=== PATIENT | female | born 1955 | race Caucasian/White ===

== ENCOUNTER 2017-09-06 06:24 | Inpatient (IN) | payer MEDICARE, OTHER ==
[2017-09-06] VITALS (16 sets, daily range): BP systolic 100–126; BP diastolic 55–89; BMI 39.2
[2017-09-06 06:35] LABS: BASOPHILS 0.2 % (0-2); EOSINOPHILS 0.1 % (0-7); HEMATOCRIT 25.1 % (36.0-48.0); HEMOGLOBIN 8.2 g/dL (12-16); IMMATURE GRANULOCYTES 0.6 % (0-5); LYMPHOCYTES 7.3 % (15-50); MCH 30.6 pg (26.0-34.0); MCHC 32.7 g/dL (31.0-37.0); MCV 93.7 fL (80.0-100.0); MEAN PLATELET VOLUME 10.7 fL (7.4-10.4); MONOCYTES 0.8 % (2-11); PLATELET COUNT 214 10x3/uL (130-400); RBC 2.68 10x6/uL (4.00-5.40); RDW 16.1 % (11.5-14.5); WBC 14.5 10x3/uL (4.8-10.8)
[2017-09-06 07:07] LABS: APTT 35.7 SECONDS (22.8-39.4); INR 1.96 (0.85-1.17); PROTIME 22.3 SECONDS (11.6-15.0)
[2017-09-06] MEDS ORDERED: ZOCOR20 MG PO (10:30)
--- NOTE | 2017-09-06 10:30 | NUR ---
PT ARRIVED FROM ER VIA STRETCHER. AWAKE, ALERT AND ORIENTED. SHE WAS ADMITTED DUE TO GI BLEED. REPORTS NO PAIN AT THIS TIME. BP 103/68 MAP 78 RI 78, O2 SAT 95% ON ROOM AIR. R-HAND 22 GAUGE SALINE LOC. RIGHT FEMORAL CVL. DRESSING HAS BLOOD ON IT. CVL SALINE LOC. ASSISTED PT ONTO BEDPAN. SMALL BM NOTED WITH DARK MELENA NOTED. WILL CONTINUE TO MONITOR.
[2017-09-06] MEDS ORDERED: COUMADIN2 MG PO (10:31)
[2017-09-06] MEDS ORDERED: NEURONTIN 300300 MG PO (10:32)
[2017-09-06] MEDS ORDERED: SYNTHROID112 MCG PO (10:33)
[2017-09-06] MEDS ORDERED: METOPROLOL TART25 MG PO (10:34)
[2017-09-06] MEDS ORDERED: BAYER CHEWABLE81 MG PO (10:34)
[2017-09-06] MEDS ORDERED: CO Q-1050 MG PO (10:35)
[2017-09-06] MEDS ORDERED: CALCIUM 600+D T1 TA1 PO (10:36)
[2017-09-06] MEDS ORDERED: VITAMIN B COMPL1 TAB PO (10:37)
[2017-09-06] MEDS ORDERED: MULTIPLE VITAMI1 TA1 PO (10:37)
[2017-09-06] MEDS ORDERED: GLUCOSAMINE HC500 MG PO (10:39)
[2017-09-06] MEDS ORDERED: MAGNESIUM OXID500 MG PO (10:40)
[2017-09-06] MEDS ORDERED: FISH OIL 1,0001 CA1 PO (10:42)
[2017-09-06] MEDS ORDERED: VITAMIN D31000 UNI2 PO (10:43)
[2017-09-06] MEDS ORDERED: ASCORBIC ACID500 MG PO (10:43)
[2017-09-06] MEDS ORDERED: VITAMIN E400 UNI2 PO (10:45)
[2017-09-06] MEDS ORDERED: PROBIOTIC250 MG PO (10:46)
[2017-09-06] MEDS ORDERED: FERROUS SULFAT325 MG PO (10:47)
[2017-09-06] MEDS ORDERED: PROTONIX20 MG PO (10:48)
[2017-09-06 10:52] LABS: ALBUMIN 2.9 g/dL (3.4-5.0); ANION GAP 13.6 mmol/L (8-16); BILIRUBIN - TOTAL 0.21 mg/dL (0.2-1.3); CALCIUM 7.4 mg/dL (8.5-10.1); CARBON DIOXIDE 22.8 mmol/L (21.0-32.0); CREATININE - SERUM 0.9 mg/dL (0.6-1.3); POTASSIUM - SERUM 4.4 mmol/L (3.5-5.1); PROTEIN - SERUM 5.4 g/dL (6.4-8.2)
[2017-09-06 11:37] LABS: BASOPHILS 0.1 % (0-2); EOSINOPHILS 0 % (0-7); HEMATOCRIT 24.7 % (36.0-48.0); HEMOGLOBIN 8.2 g/dL (12-16); IMMATURE GRANULOCYTES 0.5 % (0-5); MCH 30.8 pg (26.0-34.0); MCHC 33.2 g/dL (31.0-37.0); MCV 92.9 fL (80.0-100.0); MEAN PLATELET VOLUME 10.6 fL (7.4-10.4); MONOCYTES 0.7 % (2-11); NEUTROPHILS 92.7 % (40-80); PLATELET COUNT 201 10x3/uL (130-400); RBC 2.66 10x6/uL (4.00-5.40); RDW 16.5 % (11.5-14.5); WBC 14.8 10x3/uL (4.8-10.8)
--- NOTE | 2017-09-06 14:58 | NUR ---
2 UNIT OF PRBC'S INFUSING AT THIS TIME. ORAL TEMP 98.2, BP 107/54, ND 59, RR 18, O2 SAT OF 98% ON ROOM AIR. NO OTHER NEEDS AT THIS TIME.
--- NOTE | 2017-09-06 15:40 | NUR ---
SWALLOW EVAL IN PROGRESS AT THIS TIME.
--- NOTE | 2017-09-06 16:12 | HP ---
PATIENT: CARL WEBB MEDICAL RECORD: [id number] ACCOUNT: [id number] LOCATION:[facility] D.2312 : 55 ADMISSION DATE: 09/06/17 HISTORY AND PHYSICAL EXAMINATION HISTORY OF PRESENT ILLNESS: This 62-year-old white female was transferred from the [facility] to [place] ICU for evidence of GI bleed. The patient has had multiple episodes of GI bleed in the past, the last one was approximately 4 months ago. She states that she has had at least 5 episodes including this one of GI bleed secondary to her Coumadin. She describes having bright red blood from her rectum earlier today. She was flown in by helicopter, transfusion was occurring en route. Patient is on the Coumadin secondary to an ischemic CVA that she sustained as well as history of an arrhythmia with atrial fibrillation. The patient has difficulty with expression of her thought process with some mild expressive aphasia. She is able to be prompted okay on words, but difficult to obtain history. PAST MEDICAL HISTORY: Significant for ischemic CVA, weakness on her right side, obesity, neuropathy, vision changes. She also has a history of arrhythmia, atrial fib. She also had a defibrillator placed. The patient has a history of multiple GI bleeds. She also had a gastric bypass. Hypothyroidism. PAST SURGICAL HISTORY: Includes gastric bypass, defibrillator placement, and hysterectomy. ALLERGIES: She to allergic to IODINE MEDIA, TETRACYCLINE, SHELLFISH. HABITS: The patient does not smoke, does not drink alcohol. MEDICATIONS: Include Zocor, Coumadin, Neurontin, Levothroid, metoprolol, aspirin, Co-Q-10, calcium, multivitamin, B complex, glucosamine, magnesium, fish oil, vitamin D, vitamin C, iron, and Protonix. SOCIAL HISTORY: The patient does not smoke, does not drink alcohol. FAMILY HISTORY: Does have a family history of diabetes. REVIEW OF SYSTEMS: Difficult to obtain. PHYSICAL EXAMINATION: VITAL SIGNS: As below. GENERAL: She is a well-developed, well-nourished, obese 62-year-old white female in no acute distress. Pale conjunctivae is noted. HEENT: Normocephalic, atraumatic. Pupils equal, round and reactive to light. Extraocular movements are intact. Oral cavity and oropharynx otherwise clear. NECK: No cervical or pharyngeal adenopathy. No nuchal rigidity. LUNGS: Clear to auscultation bilaterally. HEART: Regular rate and rhythm with a II/ systolic ejection murmur. ABDOMEN: Morbidly obese, soft, nontender, positive bowel sounds. No hepatosplenomegaly, no masses. EXTREMITIES: Trace edema is noted. NEUROLOGIC: She is able to have expressive aphasia, but is able to verbalize most things. LABORATORY DATA: Her white count is 14,000, H&H 8 and 24, platelets of 201. HISTORY AND PHYSICAL [id number] CARL WEBB INR is 1.9, glucose is elevated at 252, albumin is low at 2.9. ASSESSMENT: The patient is guaiac positive. She will be transfused 2 units packed red blood cells now. GI consultation will be obtained, sliding scale of insulin. We will check laboratory appropriately. TRANSINT:[id number] Voice Confirmation ID: [id number] DOCUMENT ID: [id number] FERNANDO CUTLER MD at 1612 CC: [id number] DICTATION DATE: 09/06/17 121 VP SECURITIES: 09/06/17 1227 ADM IN [facility] [address] [place] [address]
--- NOTE | 2017-09-06 16:18 | NUR ---
VOIDED ABOUT 400ML. PULLED UP IN BED. ENCOURAGED PT TO CHANGE POSITION IN BED FREQUENTLY TO PREVENT PRESSURE ULCERS. WILL CONTINUE TO MONITOR.
--- NOTE | 2017-09-06 18:34 | NUR ---
PT SCHEDULED FOR COLONOSCOPY WITH TIVA TOMORROW. GO LIGHTLY INITIATED. CONSENT FORMS SIGNED AND PLACED IN CHART. PT DENIES OTHER NEEDS AT THIS TIME.
--- NOTE | 2017-09-06 19:05 | NUR ---
ASSISTED PT TO BEDSIDE COMODE. LARGE BM WITH BLOOD NOTED. BM MIXED WITH URINE. PT TOLERATED WELL GETTING OUT OF BED AND ONTO BEDSIDE COMODE. ATE ALL HER DINNER. NO OTHER NEEDS AT THIS TIME.
--- NOTE | 2017-09-06 19:20 | NUR ---
SHIFT ASSESSMENT COMPLETE. A&O X4 WITH NO COMPLAINTS OF DISCOMFORT AT THIS TIME. SHE IS ABLE TO AMBULATE BY HERSELF, BUT I INSTRUCTED HER TO PUSH HER CALL LIGHT WHEN SHE NEEDS TO USE THE BSC FOR ASSISTANCE. SHE STATES THAT SHE UNDERSTANDS. S1S2 AUDIBLE. PACEMAKER TO L CHEST. LUNG SOUNDS ARE CLEAR AND HER BREATHS ARE EVEN AND UNLABORED. ABD IS ROUND AND SOFT. SHE STATES THAT IT IS NON TENDER TO TOUCH. BS ACTIVE X4. ASSISTED PT TO BSC. LARGE AMOUNT OF BLOODY STOOL EXPELLED. STOOL SAMPLE COLLECTED AND SENT TO LAB. R FEMORAL CVL INTACT. DRESSING IS BLOODY, BUT IS NOT CURRENTLY LEAKING ANY BLOOD. RADIAL AND PEDAL PULSES PALP. CALL LIGHT IN REACH. BED IN LOWEST POSITION. WILL CONT TO MONITOR.
--- NOTE | 2017-09-06 21:00 | NUR ---
COMPLETE LINEN CHANGE. PT HAS HAD 4 BOWEL MOVEMENTS. EACH ONE CONSISTS OF A LARGE AMOUNT OF BLOOD. GOLYTELY PREP IS 1/2 GONE AT THIS POINT. NO FURTHER NEEDS AT THIS TIME. LR INFUSING THROUGH CVL @ 125 ML/HR. WILL CONT TO MONITOR.
[2017-09-06 22:10] LABS: HEMATOCRIT 28.6 % (36.0-48.0); HEMOGLOBIN 9.7 g/dL (12-16)
--- NOTE | 2017-09-06 23:30 | NUR ---
PT RESTING PEACEFULLY IN BED AT THIS TIME WITH NO SIGNS OF ACUTE DISTRESS NOTED. BM X5. SHE STATES THAT SHE REFUSES THE LAST CUP OF THE GOLYTLEY. EDUCATED HER ON THE BENEFITS OF FINISHING THE SOLUTION, BUT SHE STILL REFUSED. NPO STARTING NOW. RT GROIN CVL DRESSING IS BLOODY BUT IS NOT ACTIVELY BLEEDING AT THIS TIME. REASSESSMENT COMPLETE. NO CHANGES NOTED. WILL CONT TO MONITOR.
[2017-09-07] VITALS (24 sets, daily range): BP systolic 84–130; BP diastolic 46–87; BMI 40.3
--- NOTE | 2017-09-07 01:30 | NUR ---
PT RESTING PEACEFULLY AT THIS TIME WITH NO SIGNS OF ACUTE DISTRESS NOTED. BED IN LOWEST POSITION. CALL LIGHT IN REACH. WILL CONT TO MONITOR.
--- NOTE | 2017-09-07 03:30 | NUR ---
REASSESSMENT COMPLETE. NO CHANGES NOTED AT THIS TIME. PT'S RT GROIN CVL DRESSING IS INTACT WITH BLOODY GAUZE UNDERNEATH TEGADERM. LR INFUSING @ 125 CC/HR. SHE DENIES ANY PAIN AT THIS TIME. NO FURTHER REQUESTS. WILL CONT WITH POC.
[2017-09-07 04:35] LABS: BASOPHILS 0.1 % (0-2); EOSINOPHILS 0.1 % (0-7); HEMATOCRIT 23.5 % (36.0-48.0); IMMATURE GRANULOCYTES 0.3 % (0-5); LYMPHOCYTES 12.8 % (15-50); MCH 29.4 pg (26.0-34.0); MCHC 32.8 g/dL (31.0-37.0); MEAN PLATELET VOLUME 10.8 fL (7.4-10.4); MONOCYTES 7.2 % (2-11); NEUTROPHILS 79.5 % (40-80); RBC 2.62 10x6/uL (4.00-5.40); RDW 17.5 % (11.5-14.5); WBC 14.7 10x3/uL (4.8-10.8)
[2017-09-07 04:37] LABS: APTT 25.6 SECONDS (22.8-39.4); INR 1.16 (0.85-1.17); PROTIME 14.7 SECONDS (11.6-15.0)
[2017-09-07 04:41] LABS: HEMOGLOBIN 7.7 g/dL (12-16); MCV 89.7 fL (80.0-100.0); PLATELET COUNT 157 10x3/uL (130-400)
[2017-09-07 04:45] LABS: HEMOGLOBIN A1C 5.4 % (4.8-6.0)
[2017-09-07 05:04] LABS: ALBUMIN 2.2 g/dL (3.4-5.0); ALKALINE PHOSPHATASE 59 U/L (46-116); ALT (SGPT) 23 U/L (10-68); BILIRUBIN - TOTAL 0.38 mg/dL (0.2-1.3); CALCIUM 7.6 mg/dL (8.5-10.1); CARBON DIOXIDE 26.1 mmol/L (21.0-32.0); CHLORIDE - SERUM 112 mmol/L (98-107); CREATININE - SERUM 0.7 mg/dL (0.6-1.3); POTASSIUM - SERUM 3.8 mmol/L (3.5-5.1); PROTEIN - SERUM 4.5 g/dL (6.4-8.2); SODIUM 145 mmol/L (136-145); THYROID STIMULATING HORMONE 2.41 uIU/mL (0.36-3.74); eGFR NON AFRICAN AMERICAN 90 mL/min (90-120)
[2017-09-07 05:05] LABS: CALC OSMOLALITY 290 mosm/kg (275-300); GLUCOSE 111 mg/dL (74-106); UREA NITROGEN 14 mg/dL (7-18)
--- NOTE | 2017-09-07 05:30 | NUR ---
ASSISTED PT TO BSC. SMALL BM, GREEN/YELLOW COLOR. VSS. WILL CONT TO MONITOR.
--- NOTE | 2017-09-07 06:32 | NUR ---
READ LAB RESULTS. H&H DECREASED. PAGED DR. PERKINS FOR FURTHER INSTRUCTION.
--- NOTE | 2017-09-07 06:35 | NUR ---
NEW ORDERS RECIEVED. ORDER TO INFUSE 2 UN PRBCS. WILL CONT TO MONITOR.
--- NOTE | 2017-09-07 07:00 | NUR ---
PT AWAKE AND ALERT. REPORTS NO PAIN AT THIS TIME. ON ROOM AIR WITH O2 SAT 98%. BP 90/56, OK 61, RR 14, ORAL TEMP 97.7. RESTING COMFORTABLY ON HER BED. IS ABLE TO GET OUT BED TO BEDSIDE COMODE. PERIPHERAL PULSES 2+. SKIN WARM AND DRY. COMPLETE ASSESSMENT CHARTED ON ASSESMENT SECTION. PT DENIES OTHER NEEDS AT THIS TIME. WILL CONTINUE TO MONITOR.
--- NOTE | 2017-09-07 08:15 | NUR ---
1ST UNIT OF PRBCS INFUSING AT THIS TIME. BP 126/55. ASSISTED PT TO BEDSIDE COMODE. SMALL BM NOTED BROWN WITH BLOOD NOTED. NO OTHER NEEDS AT THIS TIME WILL CONTINUE TO MONITOR.
--- NOTE | 2017-09-07 09:54 | NUR ---
COLONOSCOPY BEING PERFORMED. DID NOT FIND LOWER GI BLEEDING. EGD ORDERED. VERBAL CONSENT ACQUIRED VIA TELEPHONE FROM MR. THOMAS.
--- NOTE | 2017-09-07 10:46 | NUR ---
COLONOSCOPY AND EGD COMPLETED BY DR. PERKINS. SECOND UNIT OF BLOOD STARTED AT 1020. PT AWAKE AND ALERT. CVL DRESSING APPLIED TO R-GROIN CVL. PT DENIES OTHER NEEDS AT THIS TIME.
--- NOTE | 2017-09-07 14:08 | NUR ---
* Is the patient Alert and Oriented? Yes 0 * How many steps to enter\exit or inside your home? 0 0 * PCP [facility] - [place] * Pharmacy [facility] in [place] * Preadmission Environment Home with Family 0 * ADLs Independent 0 * List name and contact numbers for known caregivers / representatives who currently or will assist patient after discharge: Spouse - Gene [phone] 0 * Additional services required to return to the preadmission environment? No 0 * Can the patient safely return to the preadmission environment? Yes 0 * Has this patient been hospitalized within the prior 30 days at any hospital? No Patient Name: CARL WEBB Admission Status: ER Accout number: [id number] Admission Date: 09-06-2017 : 1955 Admission Diagnosis:GASTROINTESTINAL HEMORRHAGE, UNSPECIFIED Attending: FERNANDO CUTLER Current LOS: 1 Planned Disposition: Home Primary Insurance: MEDICARE A & B Discharge Planning Comments: CM met with patient to assess dc plans/needs. Patient states she lives at home with her , Gene. She reports she is independent with all ADL's. She states does not use any DME at home. She states she had home health services several years ago when she lived in [place]. At in, she plans to return home. No needs identified or verbalized at this time. CM will follow & assist as needed. Security Agent: Janie Serrano
--- NOTE | 2017-09-07 14:40 | NUR ---
ASSISTED PT OFF BEDSIDE COMODE. BM DARK BROWN STOOL MIXED WITH URINE. TRACES OF BLOOD NOTED. SHE HAS HAD 3 BMS TODAY. BLOOD WAS MORE PROMINENT IN FIRST TWO. WILL CONTINUE TO MONITOR.
--- NOTE | 2017-09-07 15:15 | NUR ---
PT NOT IN ROOM AT THIS TIME. WENT TO HAVE NUCLEAR MEDICINE PROCEDURE TO LOCATE GI BLEED.
--- NOTE | 2017-09-07 16:49 | NUR ---
PT BACK IN ROOM. RESTING COMFORTABLY. DENIES ANY NEEDS AT THIS TIME.
--- NOTE | 2017-09-07 17:01 | NUR ---
DR. PERKINS ORDERED CLEAR LIQUID DIET.
--- NOTE | 2017-09-07 17:33 | NUR ---
BLOOD SUGAR 55. PT WAS EATING DINNER. GAVE 240ML OF [place]QUOIS SODA. WILL ASSESS GLUCOSE LEVEL AGAING AROUND 1800.
--- NOTE | 2017-09-07 18:18 | NUR ---
BLOOD GLUCOSE 67. PT ATE ALL OF HER DINNER. PT IS ASYMTOMATIC. WILL CONTINUE TO MONITOR.
--- NOTE | 2017-09-07 18:37 | NUR ---
ASSISTED PT TO BEDSIDE COMODE. DARK BM NOTED MIXED WITH URINE. PT REPORTS NO PAIN AT THIS TIME. PT PERFORMED ORAL CARE INDEPENDENTLY. DENIES OTHER NEEDS AT THIS TIME.
[2017-09-07 18:48] LABS: HEMATOCRIT 32.9 % (36.0-48.0)
--- NOTE | 2017-09-07 19:40 | NUR ---
SHIFT ASSESSMENT COMPLETE. PT IS A&O X4 WITH NO SIGNS OF PAIN OR DISCOMFORT. ASSISTED TO BSC WITH NO COMPLICATIONS. GAIT IS STEADY. MEDIUM SIZE DARK BROWN, LIQUID BM EXPELLED. PT IS BACK IN BED AT THIS TIME. V/S: TEMP 97.8 ORAL, HR 60 BPM NORMAL SINUS, RR 19 EVEN AND UNLABORED, CLEAR LUNG SOUNDS, O2 SAT 97%, BP 111/51 NIBP. ABD IS ROUND AND SOFT, BS ACTIVE X4. RADIAL AND PEDAL PULSES PALP. R FEMORAL CVL SALINE LOC'D, DRESSING CDI. R HAND PIV SALINE LOC'D. SWAB CAPS IN USE. FLUSHED CVL AND PIV. FSBS 56. GAVE PT SPRITE WITH EXTRA SUGAR IN IT WELL SOME CHICKEN BROTH. SHE STATES THAT SHE IS FEELING OKAY. WILL MONITOR CLOSELY.
--- NOTE | 2017-09-07 21:20 | NUR ---
FSBS 75. REFILLED PT'S REFRESHMENTS. SHE DENIES ANY REQUETS. SHE CONT TO DRINK HER CHICKEN BROTH. WILL CONT TO MONITOR CLOSELY.
--- NOTE | 2017-09-07 23:30 | NUR ---
REASSESSMENT COMPLETE. PT IS RESTING PEACEFULLY WITH NO SIGNS OF ACUTE DISTRESS NOTED. FSBS 89. INSTRUCTED PT TO DRINK HER CHICKEN BROTH. SHE COMPLIES. V/S: TEMP 97.5 ORAL, HR 59 SINUS CHRISTY, BP 98/52, RR 15, O2 SAT 96%. SHE DENIES ANY PAIN AT THIS TIME. WILL CONT TO MONITOR.
[2017-09-08] VITALS (24 sets, daily range): BP systolic 92–144; BP diastolic 58–95
--- NOTE | 2017-09-08 01:30 | NUR ---
PT RESTING WITH NO SIGNS OF ACUTE DISTRESS NOTED. WILL CONT WITH POC.
--- NOTE | 2017-09-08 03:30 | NUR ---
PARTIAL LINEN CHANGE COMPLETE. PT HAD A SMALL BM, VERY DARK IN COLOR. PARTIAL BED BATH. REASSESSMENT COMPLETE. NO CHANGES NOTED. SHE DENIES ANY PAIN AT THIS TIME. VSS. WILL CONT WITH POC.
[2017-09-08 04:55] LABS: BASOPHILS 0.3 % (0-2); EOSINOPHILS 2.1 % (0-7); HEMATOCRIT 32.8 % (36.0-48.0); HEMOGLOBIN 10.9 g/dL (12-16); IMMATURE GRANULOCYTES 0.5 % (0-5); LYMPHOCYTES 23.5 % (15-50); MCH 30.4 pg (26.0-34.0); MCHC 33.2 g/dL (31.0-37.0); MCV 91.4 fL (80.0-100.0); MEAN PLATELET VOLUME 10.5 fL (7.4-10.4); MONOCYTES 8.7 % (2-11); NEUTROPHILS 64.9 % (40-80); PLATELET COUNT 146 10x3/uL (130-400); RDW 17.5 % (11.5-14.5)
[2017-09-08 05:10] LABS: RBC 3.59 10x6/uL (4.00-5.40); WBC 7.5 10x3/uL (4.8-10.8)
[2017-09-08 05:20] LABS: ALBUMIN 2.6 g/dL (3.4-5.0); ALKALINE PHOSPHATASE 67 U/L (46-116); CALC OSMOLALITY 297 mosm/kg (275-300); CALCIUM 7.9 mg/dL (8.5-10.1); CHLORIDE - SERUM 115 mmol/L (98-107); CREATININE - SERUM 0.8 mg/dL (0.6-1.3); GLUCOSE 95 mg/dL (74-106); POTASSIUM - SERUM 3.5 mmol/L (3.5-5.1); PROTEIN - SERUM 5.2 g/dL (6.4-8.2); SODIUM 150 mmol/L (136-145); UREA NITROGEN 13 mg/dL (7-18); eGFR NON AFRICAN AMERICAN 77 mL/min (90-120)
[2017-09-08 05:27] LABS: ALT (SGPT) 29 U/L (10-68)
--- NOTE | 2017-09-08 05:35 | NUR ---
PT RESTING IN BED WITH NO SIGNS OF ACUTE DISTRESS NOTED. VSS. WILL CONT WITH POC.
--- NOTE | 2017-09-08 08:48 | NUR ---
HELD PO MEDS DUE TO NPO STATUS.
--- NOTE | 2017-09-08 10:00 | NUR ---
EYES CLOSED. RESTING COMFORTABLY. NO NEEDS AT THIS TIME. WILL CONTINUE TO MONITOR.
--- NOTE | 2017-09-08 10:51 | NUR ---
INCREASED FENTANYL [employer] PROFESSIONAL RATE FROM 300MCG/HR TO 350MCG/HR DUE TO ELEVATED BP.
--- NOTE | 2017-09-08 11:00 | NUR ---
ASSISTED PT WITH BED BATH. PT ABLE TO PERFORM MOST OF THE BATH. NEEDED HELP REACHING HER BACK AND FEET. COMPLETE BED LINEN CHANGE PROVIDED. SMALL DARK JELLO LIKE STOOL NOTED. WILL CONTINUE TO MONITOR.
--- NOTE | 2017-09-08 12:43 | NUR ---
ASSISTED PT UPTO BEDSIDE COMODE. DARK BM NOTED WITH MUCOID TEXTURE MIXED WITH URINE. PT DENIES OTHER NEEDS AT THIS TIME.
--- NOTE | 2017-09-08 13:59 | NUR ---
DR. PERKINS SPOKE WITH PATIENT AND EXPLAINED CTA OF ABDOMEN WITH CONTRAST. HE EXPLAINED TREATMENT FOR HER IODINE ALLERGY WHICH WILL BE STARTED TONIGHT AT 7PM. HE STATED THAT PATIENT COULD HAVE REGULAR DIET FOR DINNER.
--- NOTE | 2017-09-08 19:00 | NUR ---
REPORT RECEIVED AND ASSESSMENT COMPLETED. PT HAS ACTIVE BOWEL SOUNDS BUT HAVE NOT PHYSICALLY SEEN STOOL. SHIFT REPORT STATED THAT STOOLS HAVE BEEN DARK. PT IS HERE FOR GI BLEED. WILL HAVE ABD CT IN AM. PREDNISONE WILL BE GIVEN BEFORE PROCEDURE PER PROTOCOL DUE TO ALLERGY. WILL MONITOR THROUGHOUT SHIFT AND PLACE PT ON NPO STATUS AFTER MIDNIGHT PER ORDERS.
--- NOTE | 2017-09-08 21:00 | NUR ---
PT ASSISTED TO BSC TWICE. NO BM AT THIS TIME. AIME TRAY GIVEN TO PT PER HER REQUEST. NO OTHER CHANGES AT THIS TIME. VSS. SANCHEZ ONITOR
--- NOTE | 2017-09-08 23:00 | NUR ---
NO CHANGES IN PT ATATUS AT THIS TIME. VSS. WILL CONTINUE TO MONITOR
[2017-09-09] VITALS (12 sets, daily range): BP systolic 111–164; BP diastolic 55–80
--- NOTE | 2017-09-09 01:15 | NUR ---
FSBS 154. 2 UNITS OF HUMALOG GIVEN. WILL CONTINUE TO MONITOR
--- NOTE | 2017-09-09 03:00 | NUR ---
REASSESSMENT COMPLETED. SEE FLOWSHEET FOR FULL DETAILS. PT SLEEPING IN ROOM AT THIS TIME. NO CHANGES IN STATUS. WILL CONTINUE TO MONITOR
--- NOTE | 2017-09-09 05:00 | NUR ---
AM LABS DRAWN. WILL MONITOR RESULTS THEY ARE RECEIVED.
[2017-09-09 05:03] LABS: BASOPHILS 0 % (0-2); EOSINOPHILS 0 % (0-7); HEMOGLOBIN 10.7 g/dL (12-16); IMMATURE GRANULOCYTES 0.5 % (0-5); LYMPHOCYTES 4.9 % (15-50); MCH 30.9 pg (26.0-34.0); MCHC 33.4 g/dL (31.0-37.0); MCV 92.5 fL (80.0-100.0); MEAN PLATELET VOLUME 10.8 fL (7.4-10.4); MONOCYTES 4.2 % (2-11); NEUTROPHILS 90.4 % (40-80); PLATELET COUNT 162 10x3/uL (130-400); RBC 3.46 10x6/uL (4.00-5.40); RDW 17.5 % (11.5-14.5); WBC 14.9 10x3/uL (4.8-10.8)
[2017-09-09 05:15] LABS: ALBUMIN 2.3 g/dL (3.4-5.0); ALKALINE PHOSPHATASE 61 U/L (46-116); AMYLASE - SERUM 21 U/L (25-115); CARBON DIOXIDE 26.6 mmol/L (21.0-32.0); CHLORIDE - SERUM 113 mmol/L (98-107); CREATININE - SERUM 0.6 mg/dL (0.6-1.3); GLUCOSE 137 mg/dL (74-106); LIPASE 92 U/L (73-393); POTASSIUM - SERUM 3.5 mmol/L (3.5-5.1); SODIUM 146 mmol/L (136-145); eGFR NON AFRICAN AMERICAN > 90 mL/min (90-120)
[2017-09-09 05:21] LABS: ALT (SGPT) 41 U/L (10-68); CALC OSMOLALITY 291 mosm/kg (275-300); UREA NITROGEN 9 mg/dL (7-18)
--- NOTE | 2017-09-09 09:00 | NUR ---
TO CT VIA BED.
--- NOTE | 2017-09-09 09:20 | NUR ---
RETURN FROM CT VIA BED.
--- NOTE | 2017-09-09 10:52 | NUR ---
NUTRITION F/U CHART REVIEWED. PT CURRENTLY NPO S/P PROCEDURE. WILL MONITOR PT PROGRESS, PROVIDE DIET WHEN RESUMED. RD FOLLOWING
--- NOTE | 2017-09-09 12:42 | NUR ---
RECEIVED REPORT FROM TIFFANY IN ICU.
--- NOTE | 2017-09-09 13:15 | NUR ---
RECEIVED VIA BED FROM ICU TO ROOM. DENIES NEEDS. ASSISTED TO BSC WITH NEED TO VOID, UNABLE TO. SALINE LOCK SEEN TO RIGHT HAND, RIGHT GROIN TRIPLE LUMEN SEEN WITH INTACT DRESSING DATED 09/08/17 THAT IS SALINE LOCK. WILL MONITOR NEEDS. ASKED PATIENT TO PLEASE USE CALL LIGHT FOR ALL NEEDS.
--- NOTE | 2017-09-09 13:19 | NUR ---
TRANSFEFFED TO ROOM 2138. REC'D BY STAFF. WALKED TO NEW BED WITH ASSISTANCE.
--- NOTE | 2017-09-09 14:41 | NUR ---
CALLED JOE IN THE PHARMACY FOR SUPPER DOSE OF INSULIN ICU DID NOT HAVE IT.
--- NOTE | 2017-09-09 17:02 | NUR ---
PATIENT HAS BEEN USING HER CALL LIGHT FOR ALL NEEDS TO THE BSC. WILL CONTINUE TO MONITOR.
--- NOTE | 2017-09-09 19:35 | NUR ---
PT IN BED WATCHING TELEVISON. DENIES NEEDS AT THIS TIME.
--- NOTE | 2017-09-09 23:29 | NUR ---
CALL LIGHT IN REACH, WILL CONTINUE WITH PLAN OF CARE.
[2017-09-10 00:12] VITALS: BP 113/70
[2017-09-10 05:17] VITALS: BP 109/63; BP 182/97
--- NOTE | 2017-09-10 07:29 | NUR ---
0710-ROUNDING DONE WITH NO NEEDS VOICED BY PATIENT EXCEPT THAT SHE REPORTS SHE DID NOT SLEEP WELL. ON ROOM AIR. RIGHT HAND SEEN WITH SALINE LOCK. RIGHT CVL SEEN TO GROIN, WILL CHANGE DRESSING TODAY. WILL CONTINUE TO MONITOR. RE-ENFORCED PATIENT TO USE HER CALL LIGHT FOR ASSIST TO RESTROOM.
[2017-09-10 08:22] VITALS: BP 112/79
--- NOTE | 2017-09-10 12:10 | NUR ---
EATING LUNCH WITH NO COMPLAINTS. WILL CONTINUE TO FOLLOW.
[2017-09-10 12:39] VITALS: BP 119/68
[2017-09-10 15:55] LABS: BASOPHILS 0.1 % (0-2); EOSINOPHILS 2.3 % (0-7); HEMATOCRIT 36.7 % (36.0-48.0); HEMOGLOBIN 11.8 g/dL (12-16); IMMATURE GRANULOCYTES 0.4 % (0-5); LYMPHOCYTES 17.7 % (15-50); MCH 30.9 pg (26.0-34.0); MCHC 32.2 g/dL (31.0-37.0); MEAN PLATELET VOLUME 10.8 fL (7.4-10.4); MONOCYTES 9.7 % (2-11); NEUTROPHILS 69.8 % (40-80); PLATELET COUNT 157 10x3/uL (130-400); RBC 3.82 10x6/uL (4.00-5.40); RDW 17.7 % (11.5-14.5)
[2017-09-10 15:56] LABS: MCV 96.1 fL (80.0-100.0)
[2017-09-10 16:03] LABS: INR 0.93 (0.85-1.17); PROTIME 12.3 SECONDS (11.6-15.0)
[2017-09-10 16:13] LABS: ALBUMIN 2.6 g/dL (3.4-5.0); ANION GAP 8.2 mmol/L (8-16); BILIRUBIN - TOTAL 0.29 mg/dL (0.2-1.3); CALCIUM 7.8 mg/dL (8.5-10.1); CARBON DIOXIDE 28.3 mmol/L (21.0-32.0); CREATININE - SERUM 0.9 mg/dL (0.6-1.3); POTASSIUM - SERUM 3.5 mmol/L (3.5-5.1); PROTEIN - SERUM 5.3 g/dL (6.4-8.2)
--- NOTE | 2017-09-10 16:31 | NUR ---
PATIENT HAS BEEN USING HER CALL LIGHT FOR ASSISTANCE TO BSC AND OTHER NEEDS. WILL CONTINUE TO MONITOR FOR ANY NEEDS.
--- NOTE | 2017-09-10 19:46 | NUR ---
RESTING WITH EYES CLOSED, RESP ARE EVEN AND NON LABORED. WILL CONTINUE TO MONITOR.
[2017-09-10 20:00] VITALS: BP 106/58
--- NOTE | 2017-09-10 23:45 | NUR ---
REPORT RECIEVED, RESUMED CARE OF PT. SLEEPING ATT, NO S&S OF DISTRESS NOTED. BED LOW AND LOCKED, CALL LIGHT IN REACH. WILL CPOC.
[2017-09-11] VITALS: BP 107/71
[2017-09-11 04:00] VITALS: BP 102/70
[2017-09-11 04:28] LABS: BASOPHILS 0.1 % (0-2); EOSINOPHILS 3.1 % (0-7); HEMOGLOBIN 11.8 g/dL (12-16); IMMATURE GRANULOCYTES 0.6 % (0-5); LYMPHOCYTES 22.2 % (15-50); MCH 30.6 pg (26.0-34.0); MCHC 31.9 g/dL (31.0-37.0); MCV 96.1 fL (80.0-100.0); MEAN PLATELET VOLUME 10.8 fL (7.4-10.4); MONOCYTES 7.5 % (2-11); NEUTROPHILS 66.5 % (40-80); PLATELET COUNT 162 10x3/uL (130-400); RBC 3.85 10x6/uL (4.00-5.40); RDW 17.4 % (11.5-14.5); WBC 8.7 10x3/uL (4.8-10.8)
[2017-09-11 04:45] LABS: INR 0.9 (0.85-1.17)
[2017-09-11 04:49] LABS: ANION GAP 8.7 mmol/L (8-16); CALCIUM 8.1 mg/dL (8.5-10.1); CARBON DIOXIDE 27.7 mmol/L (21.0-32.0); CREATININE - SERUM 0.9 mg/dL (0.6-1.3); POTASSIUM - SERUM 3.4 mmol/L (3.5-5.1)
--- NOTE | 2017-09-11 07:38 | NUR ---
AM ROUNDS- HELPED PT TO BEDSIDE COMMODE AND BACK TO BED. PT A/O X4, RESP EVEN AND UNLABORED. BED LOW AND WHEELS LOCKED, BEDSDIE RAILS X2, CALL LIGHT IN REACH, NAD NOTED, WILL CONTINUE TO MONITOR.
[2017-09-11 08:39] VITALS: BP 114/72
--- NOTE | 2017-09-11 09:26 | NUR ---
ADMINISTERED AM MEDS. PT IN BED WITH EYES CLOSED, AROUSES EASILY TO VOICE. PT DENIES ANY NEEEDS A THIS TIME. CALL LIGHT IN REACH, NAD NOTED, WILL CONTINUE TO MONITOR.
[2017-09-11 12:00] VITALS: BP 105/70
--- NOTE | 2017-09-11 14:12 | NUR ---
PROVIDED VERBAL AND WRITTEN DISCHARGE TEACHING TO PT AND AT BEDSIDE, BOTH VERBALILZED UNDERSTANDING TEACHING. D/C RT HAND IV, AND RT GROIN CVL BOTH TIPS INTACT. HELD PRESSURE TO RT GROIN FOR 5MINUTES. INSTRUCTED PT TO LAY FLAT FOR 15MIN. WILL CHECKED IV SITE TO MAKE SURE NO BLEEDING.
--- NOTE | 2017-09-11 14:35 | NUR ---
NO BLEEDING NOTED TO RT GROIN. PT LEFT UNIT VIA WHEELCHAIR, ACCOMPANIED BY . NAD NOTED.
== END 2017-09-11 14:51 | disposition home or self-care (01) | DRG 377 ==
LOC: OBSVTIME → D.ER 06:24 → D.OPS 06:24 → D.ICU 07:48 → D.ER 07:48 → OBSVTIME 07:48 → EDSTATUS 15:49 → D.ICU 15:55 → D.M2 09-09 13:17 → D.ICU 09-09 13:17 → D.M2 09-11 14:51
PROVIDERS: Emergency Medicine; Internal Medicine Gastroenterology; ADMIT Family Medicine
PROC: 0DJD8ZZ Inspection of Lower Intestinal Tract, Via Natural or Artificial Opening Endoscopic (ICD-10-PCS; 2017-09-07)
PROC: 0DJ08ZZ Inspection of Upper Intestinal Tract, Via Natural or Artificial Opening Endoscopic (ICD-10-PCS; principal; 2017-09-07 08:23)
DX: K92.2 Gastrointestinal hemorrhage, unspecified (principal); R53.2 Functional quadriplegia; D62 Acute posthemorrhagic anemia; I69.951 Hemiplegia and hemiparesis following unspecified cerebrovascular disease affecting right dominant side; I48.91 Unspecified atrial fibrillation; Z79.01 Long term (current) use of anticoagulants; E66.9 Obesity, unspecified; E03.9 Hypothyroidism, unspecified; Z68.39 Body mass index [BMI] 39.0-39.9, adult; I69.920 Aphasia following unspecified cerebrovascular disease; Z95.810 Presence of automatic (implantable) cardiac defibrillator

== ENCOUNTER 2018-09-19 10:41 | Outpatient (CLI) | payer MEDICARE, OTHER ==
[~2018-09-19] VITALS: Ht 160 cm; Wt 101.8 kg
--- NOTE | ~2018-09-19 | OP ---
PATIENT NAME: CARL WEBB MEDICAL RECORD: [id number] :55 LOCATION:D.CAT ADMISSION DATE: SURGEON: HARRIETT HOOVER MD DATE OF OPERATION: 09/19/2018 PROCEDURE: Left heart catheterization, selective coronary angiography, right femoral artery approach. CATHETERS: A 5-[place] sheath, 5/4 left and right Bashir, 5/4 pig. The procedure was well tolerated. The patient was returned to the kaur. Sheath was removed. ExoSeal device was placed. FINDINGS: Left ventriculography in 30-degree MCKINLEY view: Normal wall motion and normal systolic function. CORONARY ANATOMY: LEFT MAIN: Left main is free of disease. LAD: Free of disease in the diagonal system. CIRCUMFLEX: Free of disease in the marginal system. RIGHT CORONARY ARTERY: Dominant artery, gives rise to PDA, free of disease. IMPRESSION: Normal LV systolic function. Normal coronary anatomy. TRANSINT:[id number] Voice Confirmation ID: [id number] DOCUMENT ID: [id number] HARRIETT HOOVER MD at 1302 CC: [id number] DICTATION DATE: 09/19/18 1409 WORKER'S COMPENSATION CLAIMS EXAMINER: 09/19/18 1559 DEP CLI 09/19/18 [id number] [place] [address]
--- NOTE | ~2018-09-19 | HEMODYNAMI ---
PATIENT:CARL WEBB MEDICAL RECORD: [id number] : 55 LOCATION:[facility] ADMISSION DATE: 09/19/18 Generatedon:09/19/201814:01 Patient name: CARL WEBB Patient #: [id number] SSN : : 1955 Date of study: 09/19/2018 Page: Of Hemodynamic Procedure Report Patient Data Patient Demographics Procedure consent was obtained First Name: CARL Gender: Female Last Name: TRACEY : 1955 Patient #: [id number] Age: 63 year(s) Race: Unknown Additional ID: [id number] Contact details [address]: [address] [place] [address] State: [place] City: [place] Zip code: [address] Past Medical History Allergies Allergen Reaction Date Comments Reported Tetracycline 09/19/2018 Admission Admission Data Admission Date: 09/19/2018 Admission Time: 10:41 Weight (lbs.): 230 Weight (kg.): 104.33 Lab Results Lab Result Date: 09/19/2018 Lab Result Time: 0:00 Biochemistry Name Units Result Min Max BUN mg/dl 21 --(----)-* 7 18 Creatinine mg/dl 0.9 --(-*--)-- 0.6 1.3 CBC Name Units Result Min Max Hemoglobin g/dl 11.7 *-(----)-- 13.5 17.5 Procedure Procedure Types Cath Procedure Diagnostic Procedure [facility] w/Coronaries Procedure Description Procedure Date Procedure Date: 09/19/2018 Procedure Start Time: 13:48 Procedure End Time: 13:58 Procedure Staff Name Function Jay Arambula MD Performing Physician Maurice Vance RT Monitor Leona Saravia RT Scrub Lolita Vann RN Nurse Vito Stevens RN Nurse Procedure Data Cath Procedure Fluoroscopy Diagnostic fluoroscopy Total fluoroscopy Time: 1.7 time: 1.7 min min Diagnostic fluoroscopy Total fluoroscopy dose: 451 dose: 451 mGy mGy Contrast Material Contrast Material Type Amount (ml) Isovue 300 52 Entry Location Entry Primary Successful Side Size Upsize Upsize Entry Closure Succes sful Closure Location (Fr) 1 (Fr) 2 (Fr) Remarks Device Remarks Femoral Right 5 Fr Exoseal artery Estimated blood loss: 5 ml Diagnostic catheters Device Type Used For End Catheter Placement MULTIPACK JL 4.0 5Fr Procedure catheter MULTIPACK 3DRC 5Fr Procedure catheter MULTIPACK Pigtail 5 Fr Procedure catheter Procedure Complications No complications Procedure Medications Medication Administration Route Dosage 0.9% NaCl I.V. 100 ml/hr Oxygen etCO2 Nasal cannula 2 l/min Lidocaine 2% added to field 20 Heparin Flush Bag added to field 2 bags (1000units/500ml NS) Versed I.V. 2 mg Fentanyl I.V. 100 mcg Versed I.V. 1 mg Versed I.V. 1 mg Hemodynamics Rest HGB: 11.7 (g/dl) Heart Rate: 60 (bpm) Pressure Samples Time Site Value (mmHg) Purpose Heart Use Rate(bpm) 13:55 LV 123/6,12 Snapshot 68 13:55 AO 123/64(86) Pullback 75 13:55 LV 123/13,20 Pullback 75 Gradients Valve Time Site 1 Site 2 Mean SEP/DFP Peak To Heart Use (mmHg) (sec/min) Peak Rate (mmHg) (bpm) Aortic 13:55 LV AO 2 21 0 75 123/13,20 123/64(86) Calculations Valve P-P Mean Valve Index Valve Source Name Gradient Area Flow (cm2) Aortic 0 2 0 2 Snapshots Pre Cath Intra NCS Post Cath Vital Signs Time Heart Resp SPO2 etCO2 NIBP (mmHg) Rhythm Pain Sedation Rate (ipm) (%) (mmHg) Status Level (bpm) 13:34:22 62 24 100 28.9 150/83(110) NSR 0 (11) 10(A) , No pain 13:38:50 61 18 98 23.7 133/76(108) NSR 0 (11) 10(A) , No pain 13:43:10 60 16 98 14.1 129/71(102) NSR 0 (11) 10(A) , No pain 13:47:32 60 10 93 28.9 119/68(96) NSR 0 (11) 9(A) , No pain 13:51:50 74 14 96 31.2 138/86(113) NSR 0 (11) 9(A) , No pain 13:56:21 63 14 96 32.6 118/74(101) NSR 0 (11) 10(A) , No pain Medications Time Medication Route Dose Verified Delivered Reason Notes Eff ectiveness by by 13:23:45 0.9% NaCl I.V. 100 Jay Lolita used for ml/hr Qulin Edwar procedure MD IRIZARRY 13:23:53 Oxygen etCO2 2 Jay Lolita used for Nasal l/min [facility] procedure cannula MD IRIZARRY 13:24:01 Lidocaine 2% added 20ml Jay Thompson for local to vial [facility] anesthetic field MD GONG 13:24:06 Heparin Flush added 2 Jay Jay used for Bag to bags [facility] procedure (1000units/500ml field MD GONG NS) 13:43:14 Versed I.V. 2 mg Vito Vito for Lorigan Lorigan sedation RN RN 13:43:24 Fentanyl I.V. 100 Vito Vito for mcg Lorigan Lorigan sedation RN RN 13:52:54 Versed I.V. 1 mg Vito Vito for Lorigan Lorigan sedation RN RN 13:57:04 Versed I.V. 1 mg Vito Vito for Lorigan Lorigan sedation RN adult probation officer Log Time Note 13:02:53 Signed procedure consent form obtained from patient. 13:02:55 Diagnostic Cath status Elective 13:06:38 Lab Result : Creatinine 0.9 mg/dl 13:06:38 Lab Result : BUN 21 mg/dl 13:06:38 Lab Result : Hemoglobin 11.7 g/dl 13:07:14 Patient Weight : 230 lbs 13:13:39 Vito Stevens RN sent for patient. Start room use. 13:13:40 Time tracking: Regular hours (M-F 7:00 - 5:00) 13:13:44 Plan of Care:Hemodynamics will remain stable., Cardiac rhythm will remain stable., Comfort level will be maintained., Respiratory function will remain adequate., Patient/ family verbilizes understanding of procedure., Procedure tolerated without complication., Recovers from procedure without complications.. 13:13:45 Signed procedure consent form obtained from patient. 13:13:55 H&P Date Dictated: 08/23/2018 Within 30 days and on chart., H&P Addendum completed by physician on day of procedure. (MUST COMPLETE FOR ALL OUTPATIENTS). 13:14:02 Patient allergic to Tetracycline 13:23:45 0.9% NaCl 100 ml/hr I.V. was administered by Lolita Vann RN; used for procedure; 13:23:53 Oxygen 2 l/min etCO2 Nasal cannula was administered by Lolita Vann RN; used for procedure; 13:24:01 Lidocaine 2% 20ml vial added to field was administered by Jay Arambula MD; for local anesthetic; 13:24:06 Heparin Flush Bag (1000units/500ml NS) 2 bags added to field was administered by Jay Arambula MD; used for procedure; 13:26:25 Patient received from Pre/Post Procedure Room to CCL 1 Alert and oriented. Tansferred to table in Supine position. 13:26:32 Warm blankets applied, and jaqueline hugger turned on for patient comfort. 13:26:32 Correct patient and procedure confirmed by team. 13:26:33 ECG and BP/O2 sat monitors applied to patient. 13:31:50 Vital chart was started 13:39:37 Baseline sample Acquired. 13:39:50 Rhythm: sinus rhythm 13:39:51 Full Disclosure recording started 13:39:53 Pre-procedure instructions explained to patient. 13:39:53 Pre-op teaching completed and patient verbalized understanding. 13:39:54 Family in waiting room. 13:39:56 Patient NPO since Breakfast. 13:39:58 Is the patient allergic to Iodine/contrast media? Yes. 13:39:58 Was the patient premedicated? Yes 13:39:59 Is patient on blood thinner?Yes 13:40:02 Patient diabetic? No. 13:40:04 Previous problem with sedation/anesthesia? No ? 13:40:05 Snore? No 13:40:06 Sleep apnea? No 13:40:06 Deviated septum? No 13:40:08 Opens mouth fully? Yes 13:40:15 Sticks out tongue? Yes 13:40:16 Airway obstruction? No ? 13:40:22 Dentures? Yes in tight 13:40:40 Pre procedure: right dorsailis pedis pulse 2+ Normal; easily identifiable; not easily obliterated 13:40:43 Patient pain scale 0/10 ?. 13:40:48 IV patent on arrival in left forearm with 0.9% NaCl at [facility]. 13:40:50 Lab results completed and on chart. 13:40:53 Right groin area was prepped with chlora-prep and draped in sterile fashion 13:40:54 Alarms reviewed by R. N. 13:40:54 Sharps counted by scrub and verified by R.N. 13:40:57 Use device set Femoral Dx 13:40:58 ACIST Syringe (11870) opened to sterile field. 13:40:58 Bag Decanter (2002S) opened to sterile field. 13:40:59 Medline Cath Pack ([id number]) opened to sterile field. 13:41:00 ACIST Hand Control (60594) opened to sterile field. 13:41:00 ACIST Manifold (29866) opened to sterile field. 13:41:01 DIAGNOSTIC Multipack 5Fr catheter set (GB7235) opened to sterile field. 13:41:03 Tegaderm 4 x 4 (1626W) opened to sterile field. 13:41:04 DIAGNOSTIC WIRE .035 260cm J wire (763349) opened to sterile field. 13:41:14 SHEATH 5FR Mikado (SUB934) opened to sterile field. 13:41:24 Physician arrived 13:41:25 --------ALL STOP TIME OUT------ 13:41:25 Final Timeout: patient, procedure, and site verified with staff and physician. All members of the team are in agreement. 13:41:27 Right groin site verified by team. 13:41:30 Physical assessment completed. ASA score P 2 - A patient with mild systemic disease as per Jay Arambula MD. 13:41:36 Sedation plan: IV Moderate Sedation Medication:Versed, Fentanyl 13:41:39 Zero performed for pressure channel P1 13:43:14 Versed 2 mg I.V. was administered by Vito Stevens RN; for sedation; 13:43:24 Fentanyl 100 mcg I.V. was administered by Vito Stevesn RN; for sedation; 13:48:01 Procedure started. 13:48:03 Local anesthetic to right femoral artery with Lidocaine 2% by Jay Arambula MD.INITIAL ACCESS ONLY 13:49:01 A 5 Fr sheath was inserted into the Right Femoral artery 13:51:05 A MULTIPACK JL 4.0 5Fr catheter was advanced over the wire and used for Procedure. 13:51:54 LCA angiography performed. 13:52:54 Versed 1 mg I.V. was administered by Vito Stevens RN; for sedation; 13:53:04 Catheter exchanged over wire. 13:53:10 A MULTIPACK 3DRC 5Fr catheter was advanced over the wire and used for Procedure. 13:54:02 RCA angiography performed. 13:54:03 Catheter exchanged over wire. 13:54:09 A MULTIPACK Pigtail 5 Fr catheter was advanced over the wire and used for Procedure. 13:54:16 EXOSEAL 5Fr (EX500) opened to sterile field. 13:54:55 LV hemodynamics recorded. 13:54:56 LV gram done using MCKINLEY 13:54:58 Injector settings: Ml/sec: 10, Volume: 20, 13:55:29 EF : 55 % 13:55:52 Catheter removed. 13:56:11 Sheath removed intact; hemostasis achieved with Exoseal to the Right Femoral artery. 13:56:13 Procedure ended.(Physican Out) 13:56:24 Fluoroscopy time 01.70 minutes. 13:56:28 Fluoroscopy dose: 451 mGy 13:56:28 Flurop Dose total: 451 13:56:33 Contrast amount:Isovue 300 52ml. 13:56:34 Sharps counted by scrub and verified by R.N. 13:56:39 Insertion/operative site no bleeding no hematoma. 13:56:41 Post-op/insertion site Right Femoral artery dressed using a 4 x 4 and Tegaderm. 13:56:45 Post right femoral artery:stable, soft, clean and dry 13:56:56 Post Procedure Pulses reassessed and unchanged 13:57:00 Post-procedure physical assessment completed. ASA score P 2 - A patient with mild systemic disease as per Jay Arambula MD. 13:57:03 Post procedure rhythm: unchanged. 13:57:04 Versed 1 mg I.V. was administered by Vito Stevens RN; for sedation; 13:57:07 Estimated blood loss: 5 ml 13:57:08 Post procedure instruction explained to patient.Patient verbalizes understanding. 13:57:09 Patient needs reinforcement of post procedure teaching. 13:57:48 Procedure and supply charges have been captured, reviewed, submitted and are correct. 13:57:51 Procedure Complication : No complications 13:57:54 Vital chart was stopped 13:57:54 See physician's report for complete and final results. 13:57:55 Report given to Pre/Post Procedure Room. 13:57:58 Patient transfered to Pre/Post Procedure Room with Stretcher. 13:58:00 Procedure ended. 13:58:00 Full Disclosure recording stopped 13:58:32 End room use (Document Last) Device Usage Item Name Manufacture Quantity Catalog Hospital Part Current Minimal L ot# / Number Charge Number Stock Stock Serial# Code ACIST Acist 1 93854 329181 285919 110338 20 Syringe Medical (05008) Systems Inc Bag Microtek 1 2001S 425982 72460 842878 5 Decanter Medical Inc. () Medline Medline 1 [id number] 229735 42591 770144 5 Cath Pack ([id number]) ACIST Hand Acist 1 00754 858810 252383 448256 5 Control Medical (73337) Systems Inc ACIST Acist 1 88846 713417 388411 426760 5 Manifold Medical (50337) Systems Inc DIAGNOSTIC Cardinal 1 [id number] 828807 26637 203280 30 Multipack Health 5Fr catheter set (CE3332) Tegaderm 4 3M 1 1626W 509024 165965 712519 5 x 4 (1626W) DIAGNOSTIC [place] 1 745298 599380 471613 207179 30 WIRE .035 260cm J wire (321599) SHEATH 5FR Terumo 1 IRC236 643095 380799 550066 40 Mikado (RHL282) MULTIPACK Cardinal 1 185013 5 JL 4.0 5Fr Health catheter MULTIPACK Cardinal 1 699074 5 3DRC 5Fr Health catheter MULTIPACK Cardinal 1 149646 5 Pigtail 5 Health Fr catheter EXOSEAL 5Fr Cardinal 1 EX500 896696 608530 015096 10 (EX500) Health Signature Audit [place] Stage Time Signature Unsigned Intra-Procedure 09/19/2018 Maurice Vance 2:01:22 PM RT(R) Signatures Monitor : Maurice Vance RT Signature : Date : Time : [facility] [address] [place] [address]
[~2018-09-19 10:41] MED LIST: ASCORBIC ACID500 MG PO; BAYER CHEWABLE81 MG PO; CALCIUM 600+D T1 TA1 PO; CO Q-1050 MG PO; COUMADIN2 MG PO; FERROUS SULFAT325 MG PO; FISH OIL 1,0001 CA1 PO; GLUCOSAMINE HC500 MG PO; MAGNESIUM OXID500 MG PO; METOPROLOL TART25 MG PO; MULTIPLE VITAMI1 TA1 PO; NEURONTIN 300300 MG PO; PROBIOTIC250 MG PO; PROTONIX20 MG PO; SYNTHROID112 MCG PO; VITAMIN B COMPL1 TAB PO; VITAMIN D31000 UNI2 PO; VITAMIN E400 UNI2 PO; ZOCOR20 MG PO
[2018-09-19 11:27] VITALS: BP 131/75; Ht 160 cm; Wt 101.8 kg
[2018-09-19 11:44] LABS: BASOPHILS 0.2 % (0-2); EOSINOPHILS 0 % (0-7); HEMATOCRIT 37.1 % (36.0-48.0); HEMOGLOBIN 11.7 g/dL (12-16); IMMATURE GRANULOCYTES 0.2 % (0-5); LYMPHOCYTES 9.8 % (15-50); MCHC 31.5 g/dL (31.0-37.0); MCV 88.8 fL (80.0-100.0); MEAN PLATELET VOLUME 10.3 fL (7.4-10.4); MONOCYTES 1.3 % (2-11); NEUTROPHILS 88.5 % (40-80); RBC 4.18 10x6/uL (4.00-5.40); RDW 17.5 % (11.5-14.5); WBC 12.9 10x3/uL (4.8-10.8)
[2018-09-19 11:48] LABS: PLATELET COUNT 326 10x3/uL (130-400)
[2018-09-19 11:54] LABS: INR 0.97 (0.85-1.17); PROTIME 12.5 SECONDS (11.6-15.0)
[2018-09-19 11:59] LABS: ANION GAP 14.7 mmol/L (8-16); CALCIUM 8.7 mg/dL (8.5-10.1); CARBON DIOXIDE 24.4 mmol/L (21.0-32.0); CREATININE - SERUM 0.9 mg/dL (0.6-1.3); POTASSIUM - SERUM 4.1 mmol/L (3.5-5.1)
== END 2018-09-19 16:00 | disposition home or self-care (01) ==
LOC: D.CATH 10:41
PROVIDERS: Internal Medicine Interventional Cardiology
DX: R94.30 Abnormal result of cardiovascular function study, unspecified (principal); I20.0 Unstable angina; Z01.812 Encounter for preprocedural laboratory examination

== ENCOUNTER 2018-10-02 23:23 | Inpatient (IN) | payer MEDICARE, OTHER ==
[~2018-10-02] VITALS: Ht 160 cm; Wt 103.9 kg
--- NOTE | ~2018-10-02 | MORECARE ---
CASE MANAGEMENT DISCHARGE SUMMARY PATIENT: CARL WEBB UNIT: [id number] ADM DATE: 10/03/18 AGE: 63 : 55 SEX: F ROOM/BED: D.1209 AUTHOR: JOSE POLANCO PHYSICIAN: REFERRING PHYSICIAN: ANAID JURADO MD DATE OF SERVICE: 10/04/18 Discharge Plan Patient Name: CARL WEBB Facility: [facility]:[place] : 1955 Planned Disposition: Home Anticipated Discharge Date: Discharge Date: Expected LOS: Initial Reviewer: [email or web address] Initial Review Date: 10/03/2018 Generated: 10/04/18 8:37 pm Patient Name: CARL WEBB Page 08531 at 1937 All edits/amendments must be made on the electronic document DICTATION DATE: 10/04/181935 CORN DETASSELER: TRAV 10/04/181935 RPT#: [id number] DC DATE: STATUS: ADM IN [facility] [address] [place] [address] END OF REPORT
--- NOTE | ~2018-10-02 | EC ---
PATIENT:CARL WEBB DATE OF SERVICE: 10/03/18 SEX: F MEDICAL RECORD: [id number] DATE OF : 55 LOCATION:D.M3 D.120 AGE OF PATIENT: 63 ADMISSION DATE: 10/03/18 REFERRING PHYSICIAN: INTERPRETING PHYSICIAN: JR ROMERO MD ECHOCARDIOGRAM REPORT ECHO CHARGES 4 ECHO COMPLETE Date: 10/05/18 CLINICAL DIAGNOSIS: PAF ECHOCARDIOGRAPHIC MEASUREMENTS (adult normal given) AC root (d.<3.7cm) 3.3 cm LV Septum d (<1.2 cm> 1.5 cm Valve Excursion 2.0 cm LV Septum (systole) 2.0 cm Left Atria (s.<4.0cm> 4.0 cm LVPW d(<1.2cm) 1.4 cm RV (d.<2.3cm) 2.3 cm LVPW (sytole) 2.1 cm LV diastole(<5.6CM) 4.4 cm MV E-F(>70mm/sec) cm LV systole 2.3 cm LVOT Diameter 1.6 cm MV exc.(>10mm) cm Est.ejection fraction (50-75%) % DOPPLER: LVIT cm/sec A 84.0 cm/sec E 134 cm/sec LA cm/sec RVSP 36.0 mmHg LVOT 192 cm/sec AOP1/2T m/s Asc. Ao 254 cm/sec RVOT 84.0 cm/sec RA cm/sec PA 121 cm/sec AV Gradient Peak 26.0 mmHg AV Mean 12.2 mmHg AV Area 1.3 cm MV Gradient Peak 8.0 mmHg MV Mean 2.9 mmHg MV Area cm COMMENTS: Foundation Stage Teacher: Trent MENESESOE University Administrator: 1 Dr. Romero TAPE# PACS Pericardial Effusion N DATE OF SERVICE: 10/05/2018 PROCEDURE: Echocardiogram. FINDINGS: 1. Left ventricular chamber size is within normal limits. Left ventricular systolic function is normal. Overall ejection fraction estimated at 65%. 2. Left atrium, right atrium, and right ventricle chamber sizes are within normal limits. 3. Valvular structures have normal structure and motion. ECHOCARDIOGRAM REPORT [id number] CARL WEBB 4. Doppler interrogation only reveals mild tricuspid regurgitation, no other valvular insufficiency or stenosis. 5. No evidence of pericardial effusion or left ventricular thrombus. TRANSINT:[id number] Voice Confirmation ID: [id number] DOCUMENT ID: [id number] JR ROMERO MD at 1704 CC: [id number] DICTATION DATE: 10/10/181117 BEAM DEPARTMENT SUPERVISOR: 10/10/18 1124 DIS IN 10/06/18 [place] [id number] [place] [id number]
--- NOTE | ~2018-10-02 | CN ---
PATIENT NAME:CARL WEBB MEDICAL RECORD: [id number] : 55 LOCATION:D.Baljeet D.1209 ADMIT DATE: 10/03/18 ACCOUNT: [id number] CONSULTING PHYSICIAN: JR LEONE MD REFERRING PHYSICIAN: ANAID JURADO MD DATE OF CONSULTATION: 10/05/2018 CARDIOLOGY CONSULTATION DIAGNOSES: 1. Paroxysmal atrial fibrillation. 2. Coumadin anticoagulation for paroxysmal atrial fibrillation. 3. GI bleed. HISTORY OF PRESENT ILLNESS: She presents with a recurrent GI bleed. She had an ulcer treated last month. She has continued to have GI bleeding. She had a recurrent EGD 2 days ago and cauterization of the same ulcer again. Her hemoglobin continues to fall. She has been off her Coumadin. When she came in, her INR was 10. She is in sinus rhythm with PACs and has not had any atrial fibrillation. PHYSICAL EXAMINATION: GENERAL APPEARANCE: Well-nourished, well-developed, appears stated age. Level of distress, comfortable. PSYCHIATRIC: Mental status, alert, normal affect. Orientation, oriented to time, place and person. EYES: Lids and conjunctiva, noninjected. No discharge, no pallor. ENT: Lips, teeth, gums, normal dentition. Oropharynx, no cyanosis, no pallor. NECK: Carotid arteries, bilateral normal upstroke, no bruits, no thrills. JUGULAR VEINS: No jugular venous pressure or distention. CERVICAL LYMPH NODES: Nontender, nonenlarged. THYROID: Not enlarged. Nontender. No nodules. LUNGS: Respiratory effort, unlabored. CHEST: Normal curvature. No thoracic deformity. No chest wall tenderness. Percussion, resonant. Auscultation, clear. No wheezes, no rales, no rhonchi. CARDIOVASCULAR: Precordial exam, nondisplaced. No heaves or pericardial thrills. Rate and rhythm, regular. Heart sounds, normal S1, normal S2. No S3, no gallop, no rub. Systolic murmur, not heard. Diastolic murmur, not heard. EXTREMITIES: No cyanosis, no edema. Peripheral pulses, full and equal in all extremities, except as noted. No bruits appreciated. ABDOMEN: Soft, nondistended. Normal aorta. No bruit. Nontender. No masses. Liver, nontender, no hepatomegaly. Spleen, nontender, no splenomegaly. MUSCULOSKELETAL: No joint tenderness. No joint swelling. No erythema. NEUROLOGICAL: Normal gait, normal strength, normal tone. SKIN: Warm and dry. OVERALL IMPRESSION: Anticoagulation with Coumadin, the risk at this time way outweighs the benefit. She maintained in sinus rhythm and her GI bleed is her primary problem. Leave her off the Coumadin with no plans to restart it, not even at discharge at this point. TRANSINT:[id number] Voice Confirmation ID: [id number] DOCUMENT ID: [id number] CONSULT REPORT [id number] CARL WEBB, JR GONG at 1704 CC: [id number] DICTATION DATE: 10/05/18 1027 NON DESTRUCTIVE EVALUATION MANAGER: 10/05/18 1208 DIS IN 10/06/18 [facility] [address] [place] [address]
--- NOTE | ~2018-10-02 | MORECARE ---
CASE MANAGEMENT DISCHARGE SUMMARY PATIENT: CARL WEBB UNIT: [id number] ADM DATE: 10/03/18 AGE: 63 : 55 SEX: F ROOM/BED: D.1209 AUTHOR: SHERRI,DOC PHYSICIAN: REFERRING PHYSICIAN: ANAID JURADO MD DATE OF SERVICE: 10/04/18 Discharge Plan Patient Name: CARL WEBB Facility: [facility]:[place] : 1955 Planned Disposition: Home Anticipated Discharge Date: Discharge Date: Expected LOS: Initial Reviewer: [email or web address] Initial Review Date: 10/03/2018 Generated: 10/04/18 8:44 pm Comments DCP- Discharge Planning Updated by [email or web address]: Rima Petersen on 10/04/18 6:[address] Late Entry 10/04/18 @ 1110 Patient Name: CARL WEBB Admission Status: ER Accout number: [id number] Admission Date: 10-03-2018 : 1955 Admission Diagnosis: Attending: ANAID JURADO Current LOS: 1 Anticipated DC Date: Planned Disposition: Home Primary Insurance: MEDICARE A & B Discharge Planning Comments: CM met with patient at bedside. Patient states that she lives at home with her and plans to return to her home upon discharge. Patient denies any discharge needs at this time. CM will continue to follow and assist as needed with discharge planning / needs. Wool Carder: Rima Petersen DCPIA - Discharge Planning Initial Assessment Updated by [id number]: Rima Petersen on 10/04/18 7:37 pm * Is the patient Alert and Oriented? Yes * How many steps to enter\exit or inside your home? * PCP Herminio Long * Pharmacy [facility] * Preadmission Environment Home with Family * ADLs Independent * Equipment None * List name and contact numbers for known caregivers / representatives who currently or will assist patient after discharge: Gene Pieter - [phone] * Verbal permission to speak to the caregivers and representatives has been obtained from the patient. N/A * Community resources currently utilized None * Additional services required to return to the preadmission environment? No * Can the patient safely return to the preadmission environment? Yes * Has this patient been hospitalized within the prior 30 days at any hospital? No Last DP export: 10/04/18 6:37 Patient Name: CARL WEBB Page 26144 at 1944 All edits/amendments must be made on the electronic document DICTATION DATE: 10/04/181942 SENIOR CLIMATE ADVISOR: TRAV 10/04/181942 RPT#: [id number] DC DATE: STATUS: ADM IN [facility] [address] [place] [address] END OF REPORT
--- NOTE | ~2018-10-02 | MORECARE ---
CASE MANAGEMENT DISCHARGE SUMMARY PATIENT: CARL WEBB UNIT: [id number] ADM DATE: 10/03/18 AGE: 63 : 55 SEX: F ROOM/BED: D.1209 AUTHOR: SHERRI,DOC PHYSICIAN: REFERRING PHYSICIAN: ANAID JURADO MD DATE OF SERVICE: 10/06/18 Discharge Plan Patient Name: CARL WEBB Facility: [facility]:[place] : 1955 Planned Disposition: Home Anticipated Discharge Date: Discharge Date: Expected LOS: Initial Reviewer: [email or web address] Initial Review Date: 10/03/2018 Generated: 10/06/18 12:09 pm Comments DCP- Discharge Planning Updated by [email or web address]: Rima Petersen on 10/06/18 10:[address] IMM explained and served 10/06/18 @ 1100 Patient denies any discharge needs at this time. CM will continue to follow and assist with discharge planning / needs. DCP- Discharge Planning Updated by [id number]: Rima Petersen on 10/04/18 6:[address] Late Entry 10/04/18 @ 1110 Patient Name: CALR WEBB Admission Status: ER Accout number: [id number] Admission Date: 10-03-2018 : 1955 Admission Diagnosis: Attending: ANAID JURADO Current LOS: 1 Anticipated DC Date: Planned Disposition: Home Primary Insurance: MEDICARE A & B Discharge Planning Comments: CM met with patient at bedside. Patient states that she lives at home with her and plans to return to her home upon discharge. Patient denies any discharge needs at this time. CM will continue to follow and assist as needed with discharge planning / needs. Supervisor Ovens: Rima Petersen DCPIA - Discharge Planning Initial Assessment Updated by [email or web address]: Rima Peetrsen on 10/04/18 7:37 pm * Is the patient Alert and Oriented? Yes * How many steps to enter\exit or inside your home? * PCP Herminio Long * Pharmacy [facility] [place] * Preadmission Environment Home with Family * ADLs Independent * Equipment None * List name and contact numbers for known caregivers / representatives who currently or will assist patient after discharge: Gene Tomas [phone] * Verbal permission to speak to the caregivers and representatives has been obtained from the patient. N/A * Community resources currently utilized None * Additional services required to return to the preadmission environment? No * Can the patient safely return to the preadmission environment? Yes * Has this patient been hospitalized within the prior 30 days at any hospital? No Coverage Notice Reviewer: [email or web address] Genoveva Petersen Notice Issued Date-Time: 10/06/2018 11:00 Notice Type: IM Discharge Notice Notice Delivered To: Patient Relationship to Patient: Self Livestock Nutrition Territory Manager Name: Delivery Method: HAND - Hand Delivered Neida Days: Prior Verbal Notification: Recipient Understood Notice: Yes Recipient Signature: Yes Med Rec Note Co-signed by Attending: Coverage Notice Comment: Last DP export: 10/04/18 6:44 Patient Name: CARL WEBB Page 03541 at 1109 All edits/amendments must be made on the electronic document DICTATION DATE: 10/06/181107 INFORMATION SECURITY MANAGER: TRAV 10/06/181107 RPT#: [id number] DC DATE: STATUS: ADM IN [facility] [address] [place] [address] END OF REPORT
--- NOTE | ~2018-10-02 | MORECARE ---
CASE MANAGEMENT DISCHARGE SUMMARY PATIENT: CARL WEBB UNIT: [id number] ADM DATE: 10/03/18 AGE: 63 : 55 SEX: F ROOM/BED: D.1209 AUTHOR: SHERRI,DOC PHYSICIAN: REFERRING PHYSICIAN: ANAID JURADO MD DATE OF SERVICE: 10/07/18 Discharge Plan Patient Name: CARL WEBB Facility: [facility]:Martha : 1955 Planned Disposition: Home Anticipated Discharge Date: Discharge Date: 10/06/2018 Expected LOS: Initial Reviewer: [email or web address] Initial Review Date: 10/03/2018 Generated: 10/07/18 3:47 pm Comments DCP- Discharge Planning Updated by [email or web address]: Rima Petersen on 10/06/18 10:[address] IMM explained and served 10/06/18 @ 1100 Patient denies any discharge needs at this time. CM will continue to follow and assist with discharge planning / needs. DCP- Discharge Planning Updated by [email or web address]: Rima Petersen on 10/04/18 6:[address] Late Entry 10/04/18 @ 1110 Patient Name: CARL WEBB Admission Status: ER Accout number: [id number] Admission Date: 10-03-2018 : 1955 Admission Diagnosis: Attending: ANAID JURADO Current LOS: 1 Anticipated DC Date: Planned Disposition: Home Primary Insurance: MEDICARE A & B Discharge Planning Comments: CM met with patient at bedside. Patient states that she lives at home with her and plans to return to her home upon discharge. Patient denies any discharge needs at this time. CM will continue to follow and assist as needed with discharge planning / needs. Meter Supervisor: Rima Petersen DCPIA - Discharge Planning Initial Assessment Updated by [email or web address]: Rima Petersen on 10/04/18 7:37 pm * Is the patient Alert and Oriented? Yes * How many steps to enter\exit or inside your home? * PCP Herminio Long * Pharmacy [facility] * Preadmission Environment Home with Family * ADLs Independent * Equipment None * List name and contact numbers for known caregivers / representatives who currently or will assist patient after discharge: Gene [place] - [phone] * Verbal permission to speak to the caregivers and representatives has been obtained from the patient. N/A * Community resources currently utilized None * Additional services required to return to the preadmission environment? No * Can the patient safely return to the preadmission environment? Yes * Has this patient been hospitalized within the prior 30 days at any hospital? No Coverage Notice Reviewer: [email or web address] Genoveva Petersen Notice Issued Date-Time: 10/06/2018 11:00 Notice Type: IM Discharge Notice Notice Delivered To: Patient Relationship to Patient: Self Drier Helper Name: Delivery Method: HAND - Hand Delivered Neida Days: Prior Verbal Notification: Recipient Understood Notice: Yes Recipient Signature: Yes Med Rec Note Co-signed by Attending: Coverage Notice Comment: Last DP export: 10/06/18 10:09 Patient Name: CARL WEBB Page [phone] at 1447 All edits/amendments must be made on the electronic document DICTATION DATE: 10/07/181446 MASTER CHEF: TRAV 10/07/181446 RPT#: [id number] DC DATE:10/06/18 STATUS: DIS IN [facility] [address] [place] [address] END OF REPORT
[2018-10-02 23:46] LABS: BASOPHILS 0.2 % (0-2); EOSINOPHILS 0.8 % (0-7); HEMATOCRIT 26.6 % (36.0-48.0); HEMOGLOBIN 8.6 g/dL (12-16); IMMATURE GRANULOCYTES 0.7 % (0-5); LYMPHOCYTES 15.9 % (15-50); MCH 29.1 pg (26.0-34.0); MCHC 32.3 g/dL (31.0-37.0); MCV 89.9 fL (80.0-100.0); MEAN PLATELET VOLUME 9.6 fL (7.4-10.4); MONOCYTES 5.8 % (2-11); NEUTROPHILS 76.6 % (40-80); PLATELET COUNT 233 10x3/uL (130-400); RBC 2.96 10x6/uL (4.00-5.40); WBC 16.5 10x3/uL (4.8-10.8)
[2018-10-02 23:47] VITALS: BP 127/63
[2018-10-02 23:57] LABS: INR 7.06 (0.85-1.17); PROTIME 60.8 SECONDS (11.6-15.0)
[2018-10-03] VITALS (23 sets, daily range): BP systolic 111–142; BP diastolic 51–83; Ht 160 cm; Wt 103.9 kg
[2018-10-03 03:37] LABS: BASOPHILS 0.2 % (0-2); EOSINOPHILS 0.7 % (0-7); HEMATOCRIT 24.6 % (36.0-48.0); HEMOGLOBIN 7.9 g/dL (12-16); IMMATURE GRANULOCYTES 0.8 % (0-5); LYMPHOCYTES 15.3 % (15-50); MCH 28.7 pg (26.0-34.0); MCHC 32.1 g/dL (31.0-37.0); MCV 89.5 fL (80.0-100.0); MEAN PLATELET VOLUME 10.5 fL (7.4-10.4); MONOCYTES 6.9 % (2-11); NEUTROPHILS 76.1 % (40-80); PLATELET COUNT 236 10x3/uL (130-400); RBC 2.75 10x6/uL (4.00-5.40); RDW 16.3 % (11.5-14.5); WBC 17.4 10x3/uL (4.8-10.8)
[2018-10-03 03:51] LABS: ALBUMIN 2.4 g/dL (3.4-5.0); ALKALINE PHOSPHATASE 58 U/L (46-116); ALT (SGPT) 28 U/L (10-68); BILIRUBIN - TOTAL 0.33 mg/dL (0.2-1.3); CALC OSMOLALITY 290 mosm/kg (275-300); CALCIUM 7.1 mg/dL (8.5-10.1); CARBON DIOXIDE 25.7 mmol/L (21.0-32.0); CHLORIDE - SERUM 111 mmol/L (98-107); CREATININE - SERUM 0.7 mg/dL (0.6-1.3); GLUCOSE 98 mg/dL (74-106); POTASSIUM - SERUM 4.4 mmol/L (3.5-5.1); PROTEIN - SERUM 4.9 g/dL (6.4-8.2); SODIUM 143 mmol/L (136-145); UREA NITROGEN 28 mg/dL (7-18); eGFR NON AFRICAN AMERICAN 90 mL/min (90-120)
[2018-10-03 04:34] LABS: INR 1.62 (0.85-1.17); PROTIME 18.9 SECONDS (11.6-15.0)
[2018-10-03 23:50] LABS: APPEARANCE HAZY (CLEAR); BILIRUBIN NEGATIVE (NEGATIVE); COLOR STRAW (YELLOW); GLUCOSE NEGATIVE (NEGATIVE); KETONE NEGATIVE (NEGATIVE); NITRITE POSITIVE (NEGATIVE); PROTEIN NEGATIVE (NEGATIVE); UROBILINOGEN NORMAL (NORMAL)
[2018-10-03 23:51] LABS: BACTERIA MANY /hpf (NONE SEEN); EPITHELIAL CELLS 0-5 /hpf (0-5); RED CELLS - URINE 0-5 /hpf (0-5); WHITE CELLS - URINE 0-5 /hpf (0-5)
[2018-10-04] VITALS (12 sets, daily range): BP systolic 116–147; BP diastolic 62–91
[2018-10-04 04:46] LABS: BASOPHILS 0.3 % (0-2); EOSINOPHILS 2.3 % (0-7); HEMATOCRIT 25.5 % (36.0-48.0); HEMOGLOBIN 8.4 g/dL (12-16); IMMATURE GRANULOCYTES 0.5 % (0-5); LYMPHOCYTES 24.2 % (15-50); MCH 29.7 pg (26.0-34.0); MCHC 32.9 g/dL (31.0-37.0); MCV 90.1 fL (80.0-100.0); MEAN PLATELET VOLUME 10.2 fL (7.4-10.4); NEUTROPHILS 61.7 % (40-80); PLATELET COUNT 222 10x3/uL (130-400); RBC 2.83 10x6/uL (4.00-5.40)
[2018-10-04 05:01] LABS: WBC 8.7 10x3/uL (4.8-10.8)
[2018-10-04 05:07] LABS: CALCIUM 7.5 mg/dL (8.5-10.1); CARBON DIOXIDE 25.2 mmol/L (21.0-32.0); CHLORIDE - SERUM 113 mmol/L (98-107); CREATININE - SERUM 0.7 mg/dL (0.6-1.3); GLUCOSE 90 mg/dL (74-106); SODIUM 145 mmol/L (136-145); eGFR NON AFRICAN AMERICAN 90 mL/min (90-120)
[2018-10-04 05:24] LABS: CALC OSMOLALITY 287 mosm/kg (275-300); POTASSIUM - SERUM 3.4 mmol/L (3.5-5.1); UREA NITROGEN 11 mg/dL (7-18)
[2018-10-04 05:25] LABS: INR 1.06 (0.85-1.17); PROTIME 13.5 SECONDS (11.6-15.0)
[2018-10-04 22:22] LABS: APPEARANCE HAZY (CLEAR); BILIRUBIN NEGATIVE (NEGATIVE); COLOR YELLOW (YELLOW); GLUCOSE NEGATIVE (NEGATIVE); KETONE NEGATIVE (NEGATIVE); NITRITE POSITIVE (NEGATIVE); PROTEIN NEGATIVE (NEGATIVE); SPECIFIC GRAVITY 1.015 (1.005-1.020); UROBILINOGEN NORMAL (NORMAL)
[2018-10-04 22:23] LABS: BACTERIA MANY /hpf (NONE SEEN); WHITE CELLS - URINE 25-50 /hpf (0-5)
[2018-10-05] VITALS: BP 153/76
[2018-10-05 04:00] VITALS: BP 153/71
[2018-10-05 05:40] LABS: BASOPHILS 0.2 % (0-2); EOSINOPHILS 1.3 % (0-7); HEMATOCRIT 24.5 % (36.0-48.0); HEMOGLOBIN 7.9 g/dL (12-16); IMMATURE GRANULOCYTES 0.4 % (0-5); LYMPHOCYTES 12.9 % (15-50); MCH 29.7 pg (26.0-34.0); MCHC 32.2 g/dL (31.0-37.0); MEAN PLATELET VOLUME 10.1 fL (7.4-10.4); MONOCYTES 10.5 % (2-11); NEUTROPHILS 74.7 % (40-80); PLATELET COUNT 249 10x3/uL (130-400); RBC 2.66 10x6/uL (4.00-5.40); RDW 16.4 % (11.5-14.5)
[2018-10-05 06:07] LABS: CALC OSMOLALITY 286 mosm/kg (275-300); CARBON DIOXIDE 25.3 mmol/L (21.0-32.0); CHLORIDE - SERUM 114 mmol/L (98-107); CREATININE - SERUM 0.7 mg/dL (0.6-1.3); GLUCOSE 92 mg/dL (74-106); POTASSIUM - SERUM 3.2 mmol/L (3.5-5.1); SODIUM 145 mmol/L (136-145); eGFR NON AFRICAN AMERICAN 90 mL/min (90-120)
[2018-10-05 06:09] LABS: UREA NITROGEN 7 mg/dL (7-18)
[2018-10-05 06:10] LABS: WBC 10.9 10x3/uL (4.8-10.8)
[2018-10-05 06:11] LABS: MCV 92.1 fL (80.0-100.0)
[2018-10-05 07:42] VITALS: BP 119/59
[2018-10-05 11:37] VITALS: BP 119/64
[2018-10-05 20:00] VITALS: BP 112/61
[2018-10-05 23:25] VITALS: BP 118/63
[2018-10-06 04:00] VITALS: BP 141/65
[2018-10-06 06:56] LABS: BASOPHILS 0.3 % (0-2); EOSINOPHILS 1.9 % (0-7); HEMATOCRIT 24.2 % (36.0-48.0); HEMOGLOBIN 7.6 g/dL (12-16); IMMATURE GRANULOCYTES 0.3 % (0-5); LYMPHOCYTES 21.3 % (15-50); MCH 29.1 pg (26.0-34.0); MCHC 31.4 g/dL (31.0-37.0); MCV 92.7 fL (80.0-100.0); MONOCYTES 11.6 % (2-11); NEUTROPHILS 64.6 % (40-80); PLATELET COUNT 238 10x3/uL (130-400); RBC 2.61 10x6/uL (4.00-5.40); RDW 16.3 % (11.5-14.5)
[2018-10-06 06:57] LABS: WBC 6.9 10x3/uL (4.8-10.8)
[2018-10-06 07:13] LABS: CALC OSMOLALITY 287 mosm/kg (275-300); CALCIUM 7.5 mg/dL (8.5-10.1); CHLORIDE - SERUM 113 mmol/L (98-107); CREATININE - SERUM 0.7 mg/dL (0.6-1.3); GLUCOSE 93 mg/dL (74-106); POTASSIUM - SERUM 3.3 mmol/L (3.5-5.1); SODIUM 145 mmol/L (136-145); eGFR NON AFRICAN AMERICAN 90 mL/min (90-120)
[2018-10-06 07:14] LABS: UREA NITROGEN 9 mg/dL (7-18)
[2018-10-06 07:15] VITALS: BP 117/62
[2018-10-06] MEDS ORDERED: LEVAQUIN750 MG PO (09:53)
== END 2018-10-06 14:15 | disposition home or self-care (01) | DRG 378 ==
LOC: D.ER 23:23 → D.ICU 10-03 00:26 → D.M3 10-03 00:26
PROVIDERS: Family Medicine; Internal Medicine Gastroenterology; Internal Medicine Nephrology
PROC: 0W3P8ZZ Control Bleeding in Gastrointestinal Tract, Via Natural or Artificial Opening Endoscopic (ICD-10-PCS; principal; 2018-10-03 09:58)
DX: K25.4 Chronic or unspecified gastric ulcer with hemorrhage (principal); D62 Acute posthemorrhagic anemia; N39.0 Urinary tract infection, site not specified; D68.9 Coagulation defect, unspecified; Z68.41 Body mass index [BMI] 40.0-44.9, adult; N17.9 Acute kidney failure, unspecified; I69.851 Hemiplegia and hemiparesis following other cerebrovascular disease affecting right dominant side; K44.9 Diaphragmatic hernia without obstruction or gangrene; I48.0 Paroxysmal atrial fibrillation; Z79.01 Long term (current) use of anticoagulants; K21.0 Gastro-esophageal reflux disease with esophagitis; E66.01 Morbid (severe) obesity due to excess calories; I95.9 Hypotension, unspecified; I69.820 Aphasia following other cerebrovascular disease; E03.9 Hypothyroidism, unspecified